=== PATIENT | female | born 1950 | race Hispanic/Latino ===

== ENCOUNTER 2018-03-08 06:51 | Outpatient (CLI) | payer MEDICARE, OTHER ==
[2018-03-08] MEDS ORDERED: DULCOLAX PR PRN (09:00)
--- NOTE | 2018-03-08 10:11 | Fluoroscopy Report ---
DEFAGRAM History: Pelvic floor dysfunction Findings: 38 lateral fluoroscopic images were obtained during defecation. The images demonstrate near complete emptying of the rectum. A moderate rectocele is identified which appears to completely empty. There is no evidence for enterocele or prolapse. Impression: Moderate rectocele which appears to empty.
== END 2018-03-08 06:52 | disposition home or self-care (01) ==
LOC: FLUORO 06:51
PROVIDERS: ATTEND Internal Medicine Gastroenterology
DX: N81.6 Rectocele (principal)
CPT/HCPCS: 74270; Q9963